=== PATIENT | female | born 1985 | race Caucasian/White ===

== ENCOUNTER 2016-08-19 06:41 | Day surgery (SDC) | payer OTHER ==
[~2016-08-19] VITALS: Ht 172.7 cm; Wt 86.2 kg
[~2016-08-19 06:41] MED LIST: ACETAMINOPHEN-1 EAC1; ACYCLOVIR400 MG PO; ADDERALL5 MG PO; ADVAIR 250/501 DISK IH; ADVAIR 500/501 DISK IH; ADVAIR HFA120 INHALA IH; ALBUTEROL17 GM IH; ALPRAZOLAM0.25 M2 PO; AMOXICILLI250 MG/5 M PO; ARTHROTEC 501 TABLET PO; ATARAX,VISTARIL25 MG PO; ATARAX,VISTARIL50 MG PO; Advair HFA 230/21 IH; BACTRIM,SEPT1 TABLET PO; Bactrim,Septra DS 80 PO; CALCIUM PO; CEFDINIR300 MG PO; CIPRO500 MG PO; CITRACAL + D C1 EACH PO; CLARITIN,ALAVAR10 MG PO; CLARITIN10 M3 PO; COUGH DROPS PO; CYMBALTA30 MG PO; CYMBALTA60 MG PO; Cepacol Lozenge, Sore Throat Lozenge MM; Cymbalta PO; DAILY VALUE1 EACH PO; DELTASONE10 MG PO; DESYREL100 MG PO; DILAUDID2 MG PO; DOCUSATE SODIU100 MG PO; DOLOPHINE HCL5 MG PO; DUONEB3 ML IH; Desyrel PO; EAR DROPS; FENTANYL1 EAC4 TD; FLAGYL500 MG PO; FLEXERIL10 MG PO; FLOVENT 11120 INHALA IH; Flexeril PO; Flovent 110 mcg IH; GABAPENTIN300 MG PO; GUAIFENESI100 MG/5 M PO; IBUPROFEN400 MG PO; INDOCIN25 MG PO; IPRATR-ALBUTEROL3 ML IH; ISENTRESS400 MG PO; KEFLEX500 MG PO; KLONOPIN1 MG; KLONOPIN1 MG PO; L-LYSINE500 M1 PO; LIDOCREAM15 GM TP; LYRICA100 MG PO; LYRICA75 MG PO; METHADONE10 MG PO; METHadone HCl PO; MONTELUKAST SOD10 MG PO; MORPHINE SULFAT15 MG PO; MOTRIN IB200 MG PO; MOTRIN800 MG PO; MUCUS RELIEF D1 EAC1 PO; NAPROSYN500 MG PO; NORCO 5/3251 TABLET PO; ONE A DAY VITAMIN PO; ONE DAILY FOR1 EAC1 PO; ORTHO CYCLEN1 TABLET PO; OXYCODONE HCL10 MG PO; OXYCODONE-APAP1 EAC6; OXYCONTIN10 MG PO; OxyCODONE PO; PREDNISONE PO; PREDNISONE10 MG PO; PREDNISONE5 MG PO; PROAIR HFA8.5 GM IH; PROMETHAZINE HC25 M1 PO; PROVENTIL,2.5 MG/0.5 IH; PROVENTIL,2.5 MG/3 M IH; PULMICORT0.25 MG/1 IH; PYRIDOXINE HCL100 MG PO; QUETIAPINE FUM100 MG PO; QUETIAPINE FUMA50 MG PO; ROBITUSSIN COU118 M4 PO; ROBITUSSIN100 MG/5 M PO; ROXICODONE30 MG PO; Robitussin AC,Tussi- PO; SALONPAS GEL-P1 EAC1 TD; SALONPAS PATCH1 EAC1 TD; SAPHRIS10 MG; SENNA8.6 MG PO; SINGULAIR10 MG PO; SOMA350 MG PO; STRATTERA40 MG; STRATTERA40 MG PO; Saphris SL; Singulair PO; Strattera PO; TOPAMAX100 MG PO; TOPAMAX25 MG PO; TOPAMAX50 MG PO; TRAZODONE HCL100 MG PO; TRILEPTAL150 MG PO; TRUVADA1 TABLET PO; TYLENOL WITH C1 EACH PO; TYLENOL325 M1 PO; Topamax PO; ULTRACET1 TABLET PO; ULTRAM50 MG PO; VAGISIL CREAM28 GM TP; VALIUM5 MG PO; VENTOLIN HFA18 GM IH; VENTOLIN17 GM IH; VICKS VAPOR RUB TP; VICKS VAPORUB O50 GM TP; VIIBRYD20 MG; VIIBRYD40 MG; VITAMIN B-6100 MG PO; XANAX0.25 MG PO; XANAX0.5 MG PO; XANAX1 MG PO; Xanax PO; ZANAFLEX2 M1 PO; ZANAFLEX2 MG PO; ZOFRAN4 MG PO; ZOLOFT25 MG PO; ZOVIRAX OINTMEN15 GM TP; ZOVIRAX400 MG PO; ZYRTEC10 M2 PO; ZYRTEC10 M3 PO; Zovirax PO; [UNRECOGNIZED DRUG - OTHER]; [UNRECOGNIZED DRUG - OTHER] MM; [UNRECOGNIZED DRUG - OTHER] PO; [UNRECOGNIZED DRUG - REMARK] PO; predniSONE PO
[2016-08-19 07:45] VITALS: BP 133/79
[2016-08-19 07:53] LABS: HEMATOCRIT 37.4 % (36.0-46.0); MCH 30.6 PG (29.0-34.0); MCHC 34.2 G/DL (30.0-36.0); MCV 89.5 FL (83-99); MEAN PLAT.VOLUME 8.3 uM^3 (9.5-12.4); PLATELET COUNT 194 K/uL (156-360); RBC DIS.WIDTH-CV 12.5 % (11.8-14.6); RBC DIS.WIDTH-SD 41.1 % (39-53); RED BLOOD COUNT 4.18 M/uL (3.80-5.20); WHITE BLOOD COUNT 3.8 K/uL (4.1-10.2)
[2016-08-19 09:13] LABS: POINT-OF-CARE METER ID UU14174212
[2016-08-19 09:15] LABS: METH RESISTANT S AUREUS PCR NEGATIVE (NEGATIVE); PROBE CHECK PASS; SPECIMEN PROCESSING CONTROL PASS
[2016-08-19] MEDS ORDERED: NORCO 5/3251 TABLET PO (10:31)
[2016-08-19] MEDS ORDERED: MOTRIN800 MG PO (10:31)
[2016-08-19 13:05] VITALS: BP 103/63
[2016-08-19 14:09] VITALS: BP 111/71
[2016-08-19 14:40] VITALS: BP 116/70
== END 2016-08-19 14:50 | disposition home or self-care (01) ==
LOC: SDC 06:41
PROVIDERS: Obstetrics & Gynecology
DX: N39.3 Stress incontinence (female) (male) (principal); N92.0 Excessive and frequent menstruation with regular cycle; J45.909 Unspecified asthma, uncomplicated; F90.1 Attention-deficit hyperactivity disorder, predominantly hyperactive type; B20 Human immunodeficiency virus [HIV] disease; Z79.899 Other long term (current) drug therapy; Z82.49 Family history of ischemic heart disease and other diseases of the circulatory system; Z82.61 Family history of arthritis; Z80.1 Family history of malignant neoplasm of trachea, bronchus and lung
CPT/HCPCS: 82948; 84702; 85027; 86900; 86901; 87641; 88305; 94640; C1771; J0131; J0690; J1170; J1885; J2405; J2765; J3010

== ENCOUNTER 2016-11-10 19:42 | Emergency (ER) | payer OTHER ==
[~2016-11-10] VITALS: Ht 172.7 cm; Wt 92.5 kg
[2016-11-10 20:56] LABS: HEMATOCRIT 35.1 % (36.0-46.0); MCH 29.5 PG (29.0-34.0); MCHC 33.6 G/DL (30.0-36.0); MCV 87.8 FL (83-99); MEAN PLAT.VOLUME 8.5 uM^3 (9.5-12.4); PLATELET COUNT 150 K/uL (156-360); RBC DIS.WIDTH-CV 12.1 % (11.8-14.6); RBC DIS.WIDTH-SD 39.4 % (39-53); WHITE BLOOD COUNT 5.9 K/uL (4.1-10.2)
[2016-11-10 21:09] LABS: CHLORIDE 113 mEq/L (99-109); POTASSIUM 4.2 mEq/L (3.7-5.4); SODIUM 140 mEq/L (136-147)
[2016-11-10 21:11] LABS: GLUCOSE 109 mg/dL (70-99)
[2016-11-10 21:12] LABS: ANION GAP 7 MEQ/L (2-14)
[2016-11-10 21:15] LABS: GFR ESTIMATE (CALCULATED) > 59 mL/min/
[2016-11-10 21:16] LABS: UREA NITROGEN (BUN) 13 mg/dL (9-23)
[2016-11-10] MEDS ORDERED: ZOFRAN ODT4 MG PO (21:23)
[2016-11-10] MEDS ORDERED: FIORICET,ESG1 TABLET PO (21:23)
[2016-11-10 21:25] LABS: QUANTITATIVE HCG < 4.0 MIU/ML
[2016-11-10 22:35] VITALS: BP 118/74
== END 2016-11-10 22:53 | disposition home or self-care (01) ==
LOC: EME 19:42
PROVIDERS: Nurse Practitioner Family
DX: G43.909 Migraine, unspecified, not intractable, without status migrainosus (principal); J45.909 Unspecified asthma, uncomplicated
CPT/HCPCS: 70450; 80048; 84702; 85027; 99281; 99285; J1200; J1885; J2765; J3010; J7030

== ENCOUNTER 2017-01-11 12:32 | Emergency (ER) | payer OTHER ==
[~2017-01-11] VITALS: Ht 172.7 cm; Wt 88.4 kg
[~2017-01-11 12:32] MED LIST changes: +FIORICET,ESG1 TABLET PO; +ZOFRAN ODT4 MG PO
[2017-01-11 14:18] VITALS: BP 116/68
== END 2017-01-11 14:19 | disposition home or self-care (01) ==
LOC: EME 12:32
DX: M25.532 Pain in left wrist (principal); M79.642 Pain in left hand; W01.0XXA Fall on same level from slipping, tripping and stumbling without subsequent striking against object, initial encounter; J45.909 Unspecified asthma, uncomplicated; Z72.0 Tobacco use
CPT/HCPCS: 73110; 99281; 99284

== ENCOUNTER 2017-10-15 16:43 | Emergency (ER) | payer OTHER ==
[~2017-10-15] VITALS: Ht 175.3 cm; Wt 78.3 kg
[2017-10-15] MEDS ORDERED: PERCOCET 5/31 TABLET PO (19:09)
[2017-10-15 19:52] VITALS: BP 135/94
== END 2017-10-15 19:53 | disposition home or self-care (01) ==
LOC: EME 16:43
DX: S30.0XXA Contusion of lower back and pelvis, initial encounter (principal); W01.198A Fall on same level from slipping, tripping and stumbling with subsequent striking against other object, initial encounter; Y93.89 Activity, other specified; Y92.34 Swimming pool (public) as the place of occurrence of the external cause; Z88.7 Allergy status to serum and vaccine; Z88.5 Allergy status to narcotic agent
CPT/HCPCS: 72220; 99281; 99283